=== PATIENT | male | born 1980 | race Caucasian/White ===

== ENCOUNTER 2020-09-24 14:58 | Outpatient (REF) | payer OTHER, SELFPAY ==
--- NOTE | ~2020-09-24 | XR_ITS ---
EXAMINATION: XR KNEES, STANDING AP XR KNEE, LEFT CLINICAL INFORMATION: Knee pain COMPARISON: None TECHNIQUE: Standing AP view of both knees is performed. The left knee is also imaged in lateral and axial patella views. FINDINGS: Left: No fracture, dislocation, destructive process. There is questionable thickening suprapatellar bursa which may represent trace effusion. Hoffa's fat pad appears normal. There is no significant joint narrowing and no subchondral sclerosis or erosive change or chondrocalcinosis. Axial view patella may suggest some mild lateral tilting but no lateralization patella. Right: There are tiny medial osteophytes from the femoral condyle and tibial plateau. Otherwise no significant joint narrowing and no subchondral sclerosis, erosive change, or chondrocalcinosis. XR/XR knee standing BI IMPRESSION: 1. Left: Probable mild lateral patellar tilting and trace suprapatellar effusion. 2. Right: Marginal osteophytes medial femoral condyle and medial tibial plateau.
--- NOTE | ~2020-09-24 | XR_ITS ---
EXAMINATION: XR KNEES, STANDING AP XR KNEE, LEFT CLINICAL INFORMATION: Knee pain COMPARISON: None TECHNIQUE: Standing AP view of both knees is performed. The left knee is also imaged in lateral and axial patella views. FINDINGS: Left: No fracture, dislocation, destructive process. There is questionable thickening suprapatellar bursa which may represent trace effusion. Hoffa's fat pad appears normal. There is no significant joint narrowing and no subchondral sclerosis or erosive change or chondrocalcinosis. Axial view patella may suggest some mild lateral tilting but no lateralization patella. Right: There are tiny medial osteophytes from the femoral condyle and tibial plateau. Otherwise no significant joint narrowing and no subchondral sclerosis, erosive change, or chondrocalcinosis. XR/XR knee LT 2V IMPRESSION: 1. Left: Probable mild lateral patellar tilting and trace suprapatellar effusion. 2. Right: Marginal osteophytes medial femoral condyle and medial tibial plateau.
== END 2020-09-24 14:59 | disposition home or self-care (01) ==
LOC: HO.HOSX 14:58
PROVIDERS: Visit Provider Orthopaedic Surgery
DX: M25.561 Pain in right knee (principal); M25.562 Pain in left knee
CPT/HCPCS: 73560; 73565

== ENCOUNTER → 2020-09-25 10:27 | Outpatient (BNVA) | payer OTHER, SELFPAY | PROVIDERS: PCP Pediatrics; Visit Provider Orthopaedic Surgery | DX: S83.242A Other tear of medial meniscus, current injury, left knee, initial encounter (principal) | CPT/HCPCS: 99202 ==

== ENCOUNTER 2020-10-10 06:42 | Day surgery (SDC) | payer OTHER, SELFPAY ==
[2020-10-07 08:46] VITALS: BMI 44.3
--- NOTE | 2020-10-09 11:00 | MHC.SHP ---
Pre-Procedural Eval Section A The patient is an INPATIENT: No Changes since office visit: No Cold of Flu in the past 2 weeks, No New Medical Problems, No Changes in Medication and No Patient answered all questions The History & Physical has been completed within 30 days and I have reviewed it.: Yes Section B Chief Complaint: Medial Meniscus Tear Allergies: Allergies Allergy/AdvReac Type Severity Reaction Status Date / Time seafood Allergy Severe anaphalaxis Verified 10/07/20 08:56 Plan I have reviewed the history and physical and performed a pertinent physical examination on my patient. No changes have occurred unless specified.
[2020-10-10] VITALS (7 sets, daily range): BP systolic 138–160; BP diastolic 83–109; PULSE 90–107; RESP 16–18; TEMP 36.4–36.7; O2SAT 97–98
--- NOTE | 2020-10-10 08:24 | HO.ANESPROP2 ---
HPI - Anesthesia Eval Consult details Narrative: 40 M obese pf knee scope PMFSH Active Problems Active Problems: All Active Problems (Updated 10/07/20 @ 08:57 by Sanna Mayen) Tear of medial meniscus of left knee (Acute) Past Medical History Medical History Asthma Legally blind Retinitis pigmentosa Surgical History Surgical History Hx of wisdom tooth extraction Social History Social History (Updated 10/07/20 @ 08:55 by Sanna Mayen) Are you a primary director of patient care to a significant other at home: No Do you presently have visiting nurse or other home services: No Smoking Status: Former smoker Tobacco Type: Cigarette Smoked in Last 30 Days: No Smoking Quit Date: 1995 Use of substances other than those prescribed or required for medical reasons: Yes Substance Use Type: Marijuana Substance Use Type Other:: uses edible form of marijuana-advised to hold 3-5 days pre-op Have you been hit, kicked, punched, or otherwise hurt by someone within the past year? If so, by whom?: No Advance Directives Information Provided: No Recently lost weight without trying: No Current occupational status: unemployed Current occupation: Right Handed Meds Allergies Allergy/AdvReac Type Severity Reaction Status Date / Time seafood Allergy Severe anaphalaxis Verified 10/07/20 08:56 Home Medications Medication Instructions Recorded Confirmed Last Taken Type albuterol sulfate 2 mg tablet 2 mg PO TID 09/25/20 Unknown History albuterol sulfate 2 puff PO Q6H PRN 10/07/20 10/07/20 Unknown History Exam Exam Date and Time: October 10, 2020 0824 Height,Weight and Vital Signs: Height 5 ft 8.5 in Weight 134.263 kg Last Vital Signs Temp 97.6 F 10/10/20 07:09 Pulse 90 10/10/20 07:09 Resp 16 10/10/20 07:09 BP 138/92 H 10/10/20 07:09 Pulse Ox 97 10/10/20 07:09 Airway Mallampati Class: III TM Dist: >3cm Neck ROM: Full Loose/Missing/Broken Teeth: No and Lower (Crowded front teeth) Heart: RRR Lungs: NL Assessment and Plan Assessment Anesthesia Assessment: Anesthesia Plan Discussed and Chart Reviewed Final Anesthetic Review NPO: Yes ASA Class: III Final Preanesthetic Review: No Changes in Pt Med Stat, Meds/Allgs Chart Reviewed, Consent Obtained/Reviewed and Anes Risks/Benef Reviewed Patient Risk: High Procedure Risk: Low Anesthetic Plan Anesthetic Plan: GA Disposition: Standard PACU
[2020-10-10] MEDS: Lactated Ringers 1,000 ML 50 ML IV (08:34)
[2020-10-10] MEDS: oxyCODONE HCl Immed Release 5 MG TABLET PO (09:51)
[2020-10-10] MEDS: Acetaminophen 325 MG TABLET 650 MG PO (09:51)
[2020-10-10] MEDS: Ketorolac Tromethamine 30 MG/ML VIAL IVPUSH (09:52)
--- NOTE | 2020-10-16 07:20 | P.OP_ITS ---
Operative Note Operative Note Date of Service: 10/10/20 Narrative: ARTHROSCOPIC SURGERY NOTE SURGEON: Dr Evelyn Villeda) Instrum DENTAL CERAMIST HELPER: Mali Lozano PAC PREOP DIAGNOSIS: MEDIAL MENISCAL TEAR LEFT KNEE POSTOP DIAGNOSIS: Same OPERATIVE PROCEDURE: Partial Medial Menisectomy Left Knee CLINICAL NOTE: This gentleman had ongoing problems with pain discomfort involving his left knee. He subsequently had investigations consistent with meniscal tear therefore after explaining the risks benefits and alternatives and answering all his questions it was mutually agreed upon cared phone procedure MOTION: Full range of motion STABILITY: Cruciate and collateral ligaments intact OPERATIVE DETAILS PREPARATION: GA, STANDARD TECHNIQUE, tourniquet E to 300 mm of mercury for 10 minutes SURGICAL TIME-OUT: Patient identified; procedure confirmed; site confirmed. Medical and allergy history reviewed. No preoperative antibiotics. No DVT prophylaxis. All other items discussed and agreed upon. INCISIONS: Superolateral, inferolateral, inferomedial stab incisions SYNOVIUM: Normal SYNOVIAL FLUID: Clear MEDIAL COMPARTMENT: There ways a tear of the posterior horn of the medial meniscus. This was resected using combination handheld cutters and power shaver to stable meniscus. The tibial and femoral articular surfaces were intact INTERCONDYLAR NOTCH: ACL visualized palpated intact. PCL palpated intact. LATERAL COMPARTMENT: The lateral meniscus was intact. The tibial and femoral articular surfaces intact. Popliteus tendon intact ANTERIOR COMPARTMENT: Medial and lateral gutters clear. Suprapatellar pouch clear. The patella femoral articular surfaces intact CLOSURE: 30 cc of 0.25% Marcaine with epinephrine injected in the knee. Steri-Strips and sterile dressing then applied. RECOMMENDATIONS: 1)Restore motion strength 2)Resume activities as tolerated 3)Discharge today with prescription for analgesic 4)Follow up in the office in 10-14 days
== END 2020-10-10 10:40 | disposition home or self-care (01) ==
PROVIDERS: PCP Pediatrics; Visit Provider Orthopaedic Surgery
PROC: (CPT 29870; principal; 2020-10-10 08:20)
DX: S83.242A Other tear of medial meniscus, current injury, left knee, initial encounter (principal); X58.XXXA Exposure to other specified factors, initial encounter; Y93.89 Activity, other specified; Y92.9 Unspecified place or not applicable; Y99.8 Other external cause status; J45.909 Unspecified asthma, uncomplicated; H35.52 Pigmentary retinal dystrophy; H54.8 Legal blindness, as defined in USA; E66.9 Obesity, unspecified; Z68.41 Body mass index [BMI] 40.0-44.9, adult; Z79.899 Other long term (current) drug therapy; F12.90 Cannabis use, unspecified, uncomplicated; Z87.891 Personal history of nicotine dependence
CPT/HCPCS: 29881; J0171; J1170; J1885; J2250; J3010

== ENCOUNTER → 2020-10-23 10:40 | Outpatient (BNVA) | payer OTHER, SELFPAY | PROVIDERS: PCP Pediatrics; Visit Provider Orthopaedic Surgery | DX: Z48.89 Encounter for other specified surgical aftercare (principal) | CPT/HCPCS: 99212 ==

== ENCOUNTER 2022-12-15 08:24 | Outpatient (REF) | payer OTHER, SELFPAY ==
--- NOTE | ~2022-12-15 | XR_ITS ---
Examination: Bilateral knee AP standing. Right knee 2 views. Clinical indications: Pain. Correlation: AP bilateral knee and left knee 09/25/2020. TECHNIQUE: AP bilateral knee standing 1 view. Right knee 2 views. FINDINGS: AP bilateral knee standing: There is moderate loss of medial compartment joint space both knees with periarticular spurring in bilateral medial compartment and lateral compartment right knee. No bony erosive changes. No acute fracture or dislocation seen. No abnormal joint effusion. No loose body seen. Right knee: There is severe loss of patellofemoral compartment joint space with no bony erosive changes. There is mild periapical spurring. No abnormal joint effusion or loose body seen. XR/XR knee RT 2V IMPRESSION: 1. Moderate degenerative changes medial compartment both knees with periarticular spurring. 2. There is severe loss of patellofemoral compartment joint space with periarticular spurring right knee.
--- NOTE | ~2022-12-15 | XR_ITS ---
Examination: Bilateral knee AP standing. Right knee 2 views. Clinical indications: Pain. Correlation: AP bilateral knee and left knee 09/25/2020. TECHNIQUE: AP bilateral knee standing 1 view. Right knee 2 views. FINDINGS: AP bilateral knee standing: There is moderate loss of medial compartment joint space both knees with periarticular spurring in bilateral medial compartment and lateral compartment right knee. No bony erosive changes. No acute fracture or dislocation seen. No abnormal joint effusion. No loose body seen. Right knee: There is severe loss of patellofemoral compartment joint space with no bony erosive changes. There is mild periapical spurring. No abnormal joint effusion or loose body seen. XR/XR knee standing BI IMPRESSION: 1. Moderate degenerative changes medial compartment both knees with periarticular spurring. 2. There is severe loss of patellofemoral compartment joint space with periarticular spurring right knee.
== END 2022-12-15 08:25 | disposition home or self-care (01) ==
LOC: HO.HOSX 08:24
PROVIDERS: Visit Provider Physician Assistant
DX: M17.11 Unilateral primary osteoarthritis, right knee (principal)
CPT/HCPCS: 73560; 73565; 99202

== ENCOUNTER 2023-01-25 10:00 | Outpatient (RCR) | payer OTHER, SELFPAY ==
--- NOTE | 2023-01-11 16:16 | MHC.PT.EP ---
[facility] [place] Office [place] Office [place] Office [address] [phone] F: [phone] F: [phone] F: [phone] F: [phone] Physical Therapy Plan of Care Date of Evaluation: Date of Surgery: Diagnosis: OA of R knee. Assessment: Pt is a 42 y/o male who is legally blind, works in a [employer] center and is referred to PT for eval and treat of OA of R knee which results in decreased tolerance for negotiating stairs, performing squatting, kneeling and heavy chores, as well as standing and walking for duration secondary to decreased R knee ROM and strength, gait abnormality, TTP of R knee, and pain. Pt is deemed an appropriate candidate to receive skilled PT services to address their physical impairments in order to improve their functional ability. Frequency and Duration: The patient will be seen 2 x / wk x 5 wks. Short Term Goals: Initiate Home Program. Improve baseline pain with activity to < 6/10; initial 9/10. Boring Machine Operator Helper Goals: I with Home Program. Pt will be able to walk 2 blocks with moderate difficulty; initial: unable or with extreme difficulty. Improve R knee flexion and extension MMT by at least 1/2 MMT grade. Treatment Plan: Modalities to reduce pain, spasms and effusion. Manual therapy to restore motion and function. Therapeutic exercise to improve strength and flexibility. Neuromuscular re-education for posture and balance. Therapeutic activities to return to functional activities of daily living. Electronically signed by: Rocael Ravi PT. Please sign and return to therapist. Thank you for your referral.
--- NOTE | 2023-03-11 09:20 | MHC.PT.DC ---
[facility] [place] Office [place] Office [place] Office [address] [phone] F: [phone] F: [phone] F: [phone] F: [phone] Physical Therapy Discharge Report Diagnosis: OA of R knee. Date of Surgery: Date of Evaluation: 01/11/23 Date of Discharge: 03/11/23 Treatments to Date: 4 Cancellations to Date: No Shows to Date: Discharge Status: Patient Elected to Stop Discharge Summary: Pt attended 4 PT visits before electing to stop attending. Last treatment assessment below. 6.19: Pt is improving his tolerance, he is less TTP about his knee joint; reports he persists with decreased shira for standing walking and stairs are still painful. He has ortho f/u tomorrow. Electronically signed by: Rocael Ravi PT. Please sign and return to therapist. Thank you for your referral.
== END 2023-03-11 09:20 | disposition home or self-care (01) ==
LOC: HO.PTCHIC 10:00
PROVIDERS: PCP Pediatrics; Visit Provider Physician Assistant
DX: M17.11 Unilateral primary osteoarthritis, right knee (principal)
CPT/HCPCS: 97014; 97110; 97162

== ENCOUNTER → 2023-01-26 14:55 | Outpatient (BNVA) | payer OTHER, SELFPAY | PROVIDERS: PCP Pediatrics; Visit Provider Physician Assistant | DX: M17.11 Unilateral primary osteoarthritis, right knee (principal) | CPT/HCPCS: 99212 ==

== ENCOUNTER 2023-02-03 17:29 | Outpatient (REF) | payer OTHER, SELFPAY ==
--- NOTE | ~2023-02-03 | MR_ITS ---
EXAMINATION: MR KNEE WITHOUT CONTRAST, RIGHT CLINICAL INFORMATION: Osteoarthritis COMPARISON: Radiographs 12/15/2022 TECHNIQUE: MRI of the knee without contrast was performed using routine sequences on a high-field scanner. FINDINGS: MENISCI: Medial Meniscus: Ill-defined undersurface tearing of the meniscal body. Lateral Meniscus: Intact LIGAMENTS: Cruciate: Intact Collateral: Intact edema extending along the MCL is likely related to medial compartment pathology. EXTENSOR MECHANISM: Intact ARTICULAR CARTILAGE/BONE: Patellofemoral Compartment: Cartilage thinning and surface irregularity throughout the central trochlea and minimal irregularity of the central patella. Medial Compartment: Nonuniform cartilage loss throughout the weightbearing femoral condyle with prominent marginal osteophytes. Lateral Compartment: Small marginal osteophytes. JOINT FLUID AND BURSAE: Small joint effusion and Vyas's cyst. MR/MR knee RT wo con IMPRESSION: 1. Ill-defined undersurface tearing of the medial meniscus body. 2. Moderate medial and mild patellofemoral/lateral compartment osteoarthritis with a small joint effusion and Vyas's cyst.
== END 2023-02-03 17:30 | disposition home or self-care (01) ==
LOC: HO.MRI 17:29
PROVIDERS: Visit Provider Physician Assistant
DX: M17.11 Unilateral primary osteoarthritis, right knee (principal)
CPT/HCPCS: 73721

== ENCOUNTER 2023-03-04 14:54 | Outpatient (AMB) | payer OTHER, SELFPAY ==
--- NOTE | 2023-03-04 15:01 | MHC.OFFVIS ---
Intake Intake Visit Reasons: OV- MRI results right knee OA Intake Note: Timoteo is a 43 year old male who presents today for a MRI review of the right knee. Patient reports that his knee started to get better about 3 days ago. Allergies seafood Allergy (Severe, Verified 03/04/23 15:03) anaphalaxis HPI OV- MRI results right knee OA HPI Details 43-year-old male who presents in the office today for a follow up of right knee pain and review of his MRI. The patient reports his knee started to get better about 3 days ago. PFS Medical History Asthma Legally blind Retinitis pigmentosa Surgical History Hx of wisdom tooth extraction Social History Are you a primary care connector to a significant other at home: No Do you presently have visiting nurse or other home services: No Substance Use Type: Marijuana Current occupational status: unemployed Current occupation: Right Handed Review of Systems Const All systems reviewed & are unremarkable except as noted in HPI and below Physical Exam Const General: cooperative, healthy appearing and no acute distress Orientation/consciousness: patient oriented x3 HEENT Head: Yes normocephalic and Yes atraumatic Eyes EOM: EOMs intact bilaterally Resp Effort & Inspection: normal respiratory effort and able to speak in complete sentences Cardio Jugular venous distension: no JVD Rate: regular rate Peripheral pulses: Peripheral pulses 2+ throughout GI Palpation (GI): Soft to palpation Skin General skin exam: turgor normal Lesions: no lesions Rashes: no rashes Neuro General: patient oriented x3 Extrem Other: Right knee: Normal to inspection. No ecchymosis, erythema, or joint effusion. No tenderness to palpation to the lateral joint line. Slight tenderness to palpation at the medial joint line. Full knee extension and flexion. Crepitus felt with ROM. Negative Coy's. NVI. Psych Appearance: grossly normal Mental Status: mental status grossly normal Affect: normal affect Attitude: cooperative Results Reviewed Results Reviewed: MRI of the right knee, obtained on 02/03/2023, revealed: 1. Ill-defined undersurface tearing of the medial meniscus body. 2. Moderate medial and mild patellofemoral/lateral compartment osteoarthritis with a small joint effusion and Vyas's cyst. Assessment & Plan Assessment & Plan (1) Osteoarthritis of right knee: Code(s): M17.11 - Unilateral primary osteoarthritis, right knee Plan: This is a 43 yo with a minimally symptomatic mmt and moderate OA with symptoms more attributable to OA than to meniscus tear. He wants surgery but I think it would be unhelpful and the risk of worsening symptoms outweighs the potential benefit., He did have a similar situation on his right knee which did respond to surgery so I can't say definitively that surgery would not be helpful but I would advise against it at this time. (2) Tear of medial meniscus of left knee: Code(s): S83.242A - Other tear of medial meniscus, current injury, left knee, initial encounter Qualifiers: Tear current or old: unspecified Encounter type: initial encounter Meniscus tear of knee type: unspecified type Qualified Code(s): S83.242A - Other tear of medial meniscus, current injury, left knee, initial encounter Patient Instructions: Scribed for Mali Lozano PA-C by Bertha Sesay medical office professional instructor, on 03/04/2023 at 2:56 pm, EST. Your attestation Coding Level of Care Code Est Pt Level 4 (10775) Diagnoses Osteoarthritis of right knee M17.11 Tear of medial meniscus of left knee S83.242A Tear current or old: unspecified Encounter type: initial encounter Meniscus tear of knee type: unspecified type
== END 2023-03-04 17:09 | disposition home or self-care (01) ==
PROVIDERS: PCP Pediatrics; Visit Provider Physician Assistant
DX: M17.11 Unilateral primary osteoarthritis, right knee (principal); S83.242A Other tear of medial meniscus, current injury, left knee, initial encounter; M71.21 Synovial cyst of popliteal space [Baker], right knee
CPT/HCPCS: 99213

== ENCOUNTER → 2023-03-04 14:54 | Outpatient (BNVA) | payer OTHER, SELFPAY | PROVIDERS: PCP Pediatrics; Visit Provider Physician Assistant ==